=== PATIENT | female | born 1985 | race African-American/Black ===

== ENCOUNTER 2020-12-31 11:58 | Inpatient (IN) | payer BC, SELFPAY ==
[2020-12-31] VITALS (14 sets, daily range): BP systolic 111–137; BP diastolic 61–77; PULSE 72–121; RESP 11–32; TEMP 36.4–37.3; O2SAT 86–97; BMI 45.1
--- NOTE | ~2020-12-31 | CT_ITS ---
EXAMINATION: CTA chest PE protocol EXAM DATE: 12/31/2020 14:15 INDICATION: Shortness of breath, COVID positive. Nausea vomiting diarrhea. TECHNIQUE: Spiral CTA of the chest (pulmonary arteries) was performed with 100 cc Omnipaque 350 intr avenous contrast injection. Images were acquired during the pulmonary arterial phase. Coronal maxi mum intensity projection 3D-reconstructions were created by the technologist on dedicated workstation . Axial, coronal and sagittal reformatted images were reviewed. The dose-length product (DLP) for t his examination was 674.36 mGy-cm. The exposure was tailored according to patient size (auto mA exp osure control), and iterative reconstruction (ASIR) was used as additional dose reduction technique. Correlation is made to chest x-ray from 12/31/2020. FINDINGS: Pulmonary arteries are well opacified and without intraluminal filling defects. No thora cic aortic dissection. Moderate amount of groundglass acute airspace disease involving all lobes, with some small regions of confluence developing in the lower lobes. Appearance is consistent with COVID pneumonia. Correlation with prior chest x-ray, there may be slight interval increase in extent of lung involvement. The dev eloping confluent regions are more consistent with subacute age. There are no pleural or pericardial effusions. Tracheobronchial tree is patent. There is no media stinal, hilar or axillary lymphadenopathy. There is no pneumothorax. Heart normal in size. No e vidence of coronary arterial calcification. Upper abdomen is unremarkable. The bones are unremarka ble. IMPRESSION: 1. No pulmonary emboli. 2. Acute to subacute COVID pneumonia with moderate involvement of all lobes. Reviewed, dictated and finalized at location B.
--- NOTE | ~2020-12-31 | XR_ITS ---
EXAMINATION: XR chest 1V portable DATE: 12/31/2020 12:30 INDICATION: COVID. Shortness of breath. TECHNIQUE: frontal view of the chest was obtained. COMPARISON: None FINDINGS: Mild airspace opacities in the bilateral mid and lower lung zones. No pleural effusion or pneumothora x. The cardiomediastinal silhouette is normal. Visualized bones and soft tissues are unremarkable. IMPRESSION: 1. Mild patchy bilateral airspace opacities consistent with pneumonia versus less likely pulmonary ed deb. Reviewed, dictated and finalized at location A. IMPRESSION: 1. Mild patchy bilateral airspace opacities consistent with pneumonia versus le ss likely pulmonary edema.
--- NOTE | 2020-12-31 12:00 | ECG_ITS ---
Measurements Intervals Graff Rate: 118 P: 30 IA: 131 QRS: 27 QRSD: 86 T: -2 QT: 340 QTc: 478 Interpretive Statements SINUS TACHYCARDIA NONSPECIFIC T-WAVE ABNORMALITY- ANT/INF LEADS ABNORMAL ECG Electronically Signed On 12-31-2020 12:23:53 CDT by Chuy Jacobs D.O.
--- NOTE | 2020-12-31 12:06 | PC.NURSE ---
Pt placed on 3L via NC for o2 at 85% on ra after getting out of wheelchair and into stretcher.
[2020-12-31 12:20] LABS: Basophils Percent Auto 0.1 % (0.2-1.2); Hematocrit 41.9 % (37.0-47.0); Hemoglobin 13.5 g/dL (12.0-15.0); Immature Granulocyte Absolute 0.02 K/mm3 (0.00-0.031); Immature Granulocyte Percent A 0.3 % (0-0.5); Lymphocytes Percent Auto 11.8 % (18.3-44.2); Mean Corpuscular HGB Conc 32.2 g/dl (32-36); Mean Corpuscular Hemoglobin 24.5 pg (26-34); Mean Platelet Volume 10.1 fl (7.4-10.4); Monocytes Absolute Auto 0.3 K/mm3 (0.1-0.6); Neutrophils Absolute Auto 5.6 K/mm3 (1.3-6.7); Neutrophils Percent Auto 82.8 % (45.5-73.1); Platelet Count Result 211 k/mm3 (150-375); Red Blood Count 5.51 M/mm3 (4.2-5.4); Red Cell Distribution Width 15.1 % (11.5-14.5); White Blood Count 6.8 K/mm3 (4.5-10.0)
--- NOTE | 2020-12-31 12:29 | ED.GENADULT ---
HPI - General Adult General Chief complaint: Shortness of Breath/Dyspnea Stated complaint: COVID Time Seen by Provider: 12/31/20 12:20 Source: patient History of Present Illness HPI narrative: Patient is a 35 y/o female complaining of SOB since 4-5 days ago. She states that her SOB is mild at rest, but worse with supine position and exertion. She also has fever up to 103 and cough. She tested positive for COVID Arabella of last week (9 days ago) at [facility]. She has some pleuritic chest pain/rib pain due to cough. She did not get COVID vaccine. Related Data Home Medications Medication Instructions Recorded Confirmed No Home Medications 12/31/20 12/31/20 Allergies Allergy/AdvReac Type Severity Reaction Status Date / Time No Known Allergies Allergy Verified 12/31/20 12:04 Review of Systems Constitutional: Constitutional: Reports chills, Reports fever(s), Denies headache(s) and Denies weakness Eyes: Eyes: Denies blurry vision ENT: Denies headache(s) and Denies neck pain Cardiovascular: Cardiovascular: Reports chest pain and Reports dyspnea Respiratory: Respiratory: Reports cough and Reports dyspnea Gastrointestinal: Gastrointestinal: Denies abdominal pain, Reports diarrhea, Reports nausea and Reports vomiting Genitourinary: Genitourinary: Denies hematuria and Denies dysuria Musculoskeletal: Musculoskeletal: Denies back pain and Denies neck pain Neurologic: Denies headache(s) and Denies weakness [facility] Social History Social History Gender identity (if verbalized by the patient): Female Exam Const: General: no acute distress and well developed Orientation/consciousness: oriented to person, oriented to place, oriented to time and patient oriented x3 HENMT: Head: normocephalic Ears: external ears normal General nose exam: Normal external nose present Eyes: General: appearance normal, both eyes and all related structures Conjunctivae: conjunctivae normal Neck: Neck: normal visual inspection and full ROM Chest: Chest palpation & inspection: normal inspection of the chest and no tenderness Resp: Effort & Inspection: normal respiratory effort Auscultation: clear to auscultation bilaterally Cardio: Rate: tachycardic Rhythm: regular rhythm GI: GI Palp: No abdominal tenderness and Yes Soft to palpation Skin: General skin exam: normal color and turgor normal Neuro: General: oriented to person, oriented to place, oriented to time and patient oriented x3 Cognition (Neuro): normal cognition Extrem: General: normal to inspection, full ROM and no pedal edema Psych: Appearance: grossly normal Mental Status: mental status grossly normal Affect: normal affect Course Consultations Consultation #1: Discussed with Dr. Alicea, who agrees to admit. Date: 12/31/20 Time: 12:56 Vital Signs Vital signs: Vital Signs Temperature 37.3 C 12/31/20 12:05 Pulse Rate 118 H 12/31/20 12:05 Respiratory Rate 15 12/31/20 12:05 Blood Pressure 130/71 12/31/20 12:05 Pulse Oximetry 88 L 12/31/20 12:05 Temperature 37.3 C 12/31/20 12:05 Pulse Rate 108 H 12/31/20 14:30 Respiratory Rate 21 H 12/31/20 14:30 Blood Pressure 128/75 12/31/20 14:30 Pulse Oximetry 97 12/31/20 14:30 Medical Decision Making Vital Signs Vital Signs: Vital Signs Temperature 37.3 C 12/31/20 12:05 Pulse Rate 118 H 12/31/20 12:05 Respiratory Rate 15 12/31/20 12:05 Blood Pressure 130/71 12/31/20 12:05 Pulse Oximetry 88 L 12/31/20 12:05 Temperature 37.3 C 12/31/20 12:05 Pulse Rate 108 H 12/31/20 14:30 Respiratory Rate 21 H 12/31/20 14:30 Blood Pressure 128/75 12/31/20 14:30 Pulse Oximetry 97 12/31/20 14:30 Lab Data Result diagrams: 12/31/20 12:12 12/31/20 12:12 Labs: Lab Results 12/31/20 12/31/20 12/31/20 Range/Units 12:12 12:12 12:12 WBC 6.8 (4.5-10.0) K/mm3 RBC 5.51 H (4.2-5
[2020-12-31 12:30] LABS: Anion Gap 13 mmol/L (8-16); Blood Urea Nitrogen 7 mg/dL (7-17); Calcium 8.5 mg/dL (8.4-10.2); Carbon Dioxide 22 mmol/L (22-30); Chloride 97 mmol/L (98-107); Estimated CRCL calculation 84 ml/min; Estimated Glomerular Filt Rate > 60; Glucose 120 mg/dL (65-110); Potassium 3.8 mmol/L (3.4-5.0); Sodium 132 mmol/L (137-145)
[2020-12-31 12:34] LABS: INR 0.9
[2020-12-31 12:35] LABS: Partial Thromboplastin Time 30.6 SECONDS (22.3-36.8)
[2020-12-31 12:37] LABS: D Dimer 1.38 ug/mL (<0.48)
[2020-12-31 12:41] LABS: Alanine Aminotransferase 70 U/L (4-35); Albumin Level 3.8 g/dL (3.5-5.1); Alkaline Phosphatase 82 U/L (38-126); Aspartate Amino Transferase 158 U/L (14-36); Bilirubin,Total 0.5 mg/dL (0.2-1.3)
[2020-12-31 12:54] LABS: CRP 14.8 mg/dL (<1.0)
--- NOTE | 2020-12-31 13:07 | PC.NURSE ---
[facility] lab, jasmin, added on bnp
[2020-12-31 13:28] LABS: NT Pro B Type Natriuretic Pept 32 pg/mL (5-100)
[2020-12-31] MEDS: DEXAMETHASONE SOD PHOS INJ 4 MG/ML VIAL 6 MG IV PUSH (13:53)
--- NOTE | 2020-12-31 14:05 | PC.NURSE ---
Pt to ct at this time.
--- NOTE | 2020-12-31 14:35 | PM.IMHP ---
H&P: HPI History of Present Illness Date/Time: 12/31/20 14:35 Chief Complaint: shortness of breath Narrative: Marisa Farah is a 35 year old lady with no past medical history has been admitted after presenting to the ED with complaints of worsening shortness of breath for the past several days. She also reports associated dyspnea on exertion and chest pain. She tested positive for COVID 19 on December 15. She tells me her boyfriend is also positive. She tells me she has had fever, cough and diarrhea with no improvement since the diagnosis. She did not receive the COVID 19 vaccine. She does endorse SOB during interview and exam. She denied any MORENO, dizziness, N/V or abdominal pain. ED evaluation included and revealed: She was afebrile on admission. O2 sats 86% on room air.Na 132; Cl 97; BG 120; AST/ALT 158/70; D-dimer 1.38; Ferritin 341; CRP 14.8. CXR showed mild patchy bilateral airspace opacities consistent with pneumonia versus less likely pulmonary edema. CTA was negative for PE. ECG showed ST. O2 sats improved on 2L of O2 to low 90s. Remdesivir and Dexamethasone were initiated in the ED. She has been admitted for further evaluation and treatment. Review of Systems Review of Systems: All systems reviewed & are unremarkable except as noted in HPI and below PMFSH Family History Family History Grandparent Diabetes mellitus Congestive heart failure Other Diabetes mellitus Father Cancer Mother Cancer Social History Social History Smoking status: Never smoker Alcohol intake: current Drinks per week: 1 Substance use: never Substance use type: does not use Gender identity (if verbalized by the patient): Female Sexual Orientation (if Verbalized by the Patient): Straight or Heterosexual Spiritual care concerns: No Meds Home Medications and Allergies Home Medications Medication Instructions Recorded Confirmed Type No Home Medications 12/31/20 12/31/20 History Allergies Allergy/AdvReac Type Severity Reaction Status Date / Time No Known Allergies Allergy Verified 12/31/20 15:29 Vital Signs Vital Signs - 24 hr 12/31/20 12:05 12/31/20 12:25 12/31/20 12:37 Temperature 37.3 C Pulse Rate 118 H 121 H 117 H Respiratory Rate 15 19 25 H Blood Pressure 130/71 Pulse Oximetry 88 L 93 94 12/31/20 12:49 12/31/20 13:02 12/31/20 13:15 Temperature Pulse Rate 115 H 115 H 115 H Respiratory Rate 25 H 19 32 H Blood Pressure Pulse Oximetry 91 93 93 Exam Const: General: no acute distress, alert and awake Orientation/consciousness: patient oriented x3 HENMT: Head: normocephalic and atraumatic Ears: hearing grossly normal bilaterally and external ears normal Face and sinus: face symmetric Mouth: Yes Normal oral and palatal mucosa present Eyes: Pupils: Equal, round and reactive pupils present EOM: EOMs intact bilaterally Neck: Neck: full ROM, trachea midline and no JVD Thyroid: thyroid normal Chest: Chest palpation & inspection: normal inspection of the chest Resp: Effort & Inspection: normal respiratory effort, able to speak in complete sentences and Actively coughing Cardio: Jugular venous distension: no JVD Rate: regular rate Rhythm: regular rhythm Heart sounds: S1 normal heart sound present and S2 normal heart sound present GI: Inspection: normal to inspection GI Palp: Yes Soft to palpation Percussion: Yes normal to percussion Auscultation: normal bowel sounds : General: Yes no CVA tenderness Back/Spine/Pelvis: Back: no CVA tenderness Skin: General skin exam: normal color Rashes: no rashes Neuro: General: patient oriented x3 and CN's II-XI intact bilaterally Cranial nerves: Yes Equal, round and reactive pupils present Speech: normal speech Psych: Appearance: grossly normal Affect: normal affect Judgement: Good judgement present (Psych)
[2020-12-31] MEDS: REMDESIVIR 200 MG/NS 250 ML 200 MG/250 ML BAG 250 MG IVPB (15:08)
--- NOTE | 2020-12-31 15:19 | ADMGEN ---
This patient, Marisa Farah, was admitted to [facility] Surg Room 303-01. Patient/family oriented to hospital policies and general routines including ID bracelet, bed and alarms, visiting hours, pain management, procedures, bathroom and other care routines, personal items, smoking policy, room service/diet, and visiting hours. Information on how to activate the Rapid Response Team has been discussed. Patient/Family are encouraged to report perceived risks to care and to ask questions if they do not understand what they are told or what they should do.
[2020-12-31 15:26] LABS: Estimated CRCL calculation 77 ml/min; Estimated Glomerular Filt Rate > 60
[2021-01-01] VITALS (8 sets, daily range): BP systolic 117–155; BP diastolic 74–85; PULSE 73–95; RESP 18–28; TEMP 36.4–37.1; O2SAT 90–100
[2021-01-01] MEDS: guaiFENesin/DEXTROMETHORPHAN 10 ML UDC 5 ML PO (01:33)
[2021-01-01] MEDS: ACETAMINOPHEN 500 MG TABLET 1000 MG PO (01:34)
[2021-01-01 06:40] LABS: Prothrombin Time 12.6 Seconds (11.1-14.7)
[2021-01-01 06:54] LABS: Alanine Aminotransferase 84 U/L (4-35); Estimated CRCL calculation 80 ml/min; Estimated Glomerular Filt Rate > 60
[2021-01-01] MEDS: DEXAMETHASONE SOD PHOS INJ 4 MG/ML VIAL 6 MG IV PUSH (09:47)
[2021-01-01] MEDS: ENOXAPARIN 40 MG/0.4 ML SYRINGE SUB-Q (09:47)
--- NOTE | 2021-01-01 16:37 | PM.IMPN ---
Progress Note: A&P Assessment and Plan (1) Pneumonia due to COVID-19 virus: Code(s): U07.1 - COVID-19; J12.82 - Pneumonia due to coronavirus disease 2019 Status: Acute Assessment and Plan: Patient presents with nonproductive cough and post-tussive vomiting; CTA chest demonstrates evidence consistent with COVID pneumonia with moderate involvement in all lobes, no evidence of PE. COVID positive 12/22/20; symptoms began that day. She has not received COVID vaccine. Continue dexamethasone (day 2); remdesivir (day 2). Continue supplemental O2 and wean as tolerated to keep O2 saturations > 90%. Continue supportive care with Tylenol for fevers, albuterol MDI, Robitussin, incentive spirometer. (2) Acute respiratory failure with hypoxia: Code(s): J96.01 - Acute respiratory failure with hypoxia Status: Acute Assessment and Plan: Tolerating 4 L O2 nasal cannula today. Wean supplemental oxygen as tolerated to keep O2 saturations > 90%. Monitor with continuous pulse ox monitoring. (3) Acute hyponatremia: Code(s): E87.1 - Hypo-osmolality and hyponatremia Status: Acute Assessment and Plan: Mild hyponatremia may have been related to mild dehydration. She received IV fluids which have been discontinued. Recheck BMP in AM. Subjective Date/time seen: 01/01/21 16:15 Interval history: Ms. Farah is a pleasant, otherwise healthy 35yo female who is seen in follow-up for acute respiratory failure secondary to COVID-19 pneumonia. She reports feeling about the same as yesterday. She feels her shortness of breath and cough are minimally improved compared to yesterday. Still with some diarrhea this morning x1, nonbloody. Denies nausea, vomiting. Tolerating meals today. Review of Systems Review of Systems: All systems reviewed & are unremarkable except as noted in HPI and below Exam Narrative: General: Female resting comfortably sitting up in bed in no acute respiratory distress. HEENT: Normocephalic, EOMI, oral mucosa moist. Cardiovascular: Rate and rhythm are regular. Respiratory: Diminished breath sounds GE with poor air movement. Respirations even and non-labored. Tolerating 4L NC at 94% during my exam. Abdomen: Soft, non-tender, non-distended, bowel sounds present. Extremities: Peripheral pulses intact. No edema or pain to palpation. Neuro: Awake and alert; answering questions appropriately. No focal neurological deficits. Speech is clear. Objective Data Vital Signs Vital Signs: Last Vital Signs Temp 98.2 F 01/01/21 16:00 Pulse 87 01/01/21 16:00 Resp 20 01/01/21 16:00 BP 140/83 01/01/21 16:00 Pulse Ox 94 01/01/21 16:00 Intake/Output Intake/Output: Intake & Output 12/29/20 12/30/20 12/31/20 01/01/21 23:59 23:59 23:59 23:59 Intake Total 1050 450 Output Total 400 Balance 1050 50 Meds/Results Medications: Active Medications Generic Name Dose Route Start Last Admin Trade Name Freq PRN Reason Stop Dose Admin Acetaminophen 1,000 mg 01/01/21 00:12 01/01/21 01:34 Acetaminophen 500 Mg Tablet PO 1,000 mg Q6H PRN Administration Mild Pain (1-3) or Fever Dexamethasone Sodium Phosphate 6 mg 01/01/21 09:00 01/01/21 09:47 Dexamethasone Sod Phos Inj 4 Mg/Ml Vial IV PUSH 01/09/21 09:01 6 mg DAILY JASIEL Administration Enoxaparin Sodium 40 mg 01/01/21 09:00 01/01/21 09:47 Enoxaparin 40 Mg/0.4 Ml Syringe SUB-Q 40 mg DAILY JASIEL Administration Guaifenesin/Dextromethorphan 5 ml 01/01/21 00:13 01/01/21 01:33 Guaifenesin/Dextromethorphan 10 Ml Udc PO 5 ml Q4H PRN Administration Cough Remdesivir 100 mg in 250 mls @ 250 mls/hr 01/01/21 22:00 IVPB 01/04/21 22:59 Q24H COUNT INCLUDES THE [facility] Radiology Results: ITS Impressions Chest X-Ray 12/31/20 12:33 IMPRESSION: 1. Mild
[2021-01-01] MEDS: REMDESIVIR 100 MG/NS 250 ML 100 MG/250 ML BAG 250 MG IVPB (22:02)
[2021-01-02] VITALS (9 sets, daily range): BP systolic 115–132; BP diastolic 72–90; PULSE 71–85; RESP 18–20; TEMP 36.2–36.8; O2SAT 93–97
[2021-01-02 05:36] LABS: Basophils Percent Auto 0.1 % (0.2-1.2); Hematocrit 37.6 % (37.0-47.0); Immature Granulocyte Absolute 0.06 K/mm3 (0.00-0.031); Immature Granulocyte Percent A 0.9 % (0-0.5); Lymphocytes Absolute Auto 1.03 K/mm3 (0.9-3.2); Lymphocytes Percent Auto 14.8 % (18.3-44.2); Mean Corpuscular HGB Conc 31.9 g/dl (32-36); Mean Corpuscular Hemoglobin 24.7 pg (26-34); Mean Corpuscular Volume 77.4 fl (80-100); Mean Platelet Volume 10.4 fl (7.4-10.4); Monocytes Absolute Auto 0.6 K/mm3 (0.1-0.6); Monocytes Percent Auto 8.5 % (2.6-8.5); Neutrophils Absolute Auto 5.3 K/mm3 (1.3-6.7); Neutrophils Percent Auto 75.7 % (45.5-73.1); Platelet Count Result 292 k/mm3 (150-375); Red Blood Count 4.86 M/mm3 (4.2-5.4); Red Cell Distribution Width 15.2 % (11.5-14.5)
[2021-01-02 05:48] LABS: INR 1.2; Prothrombin Time 15.1 Seconds (11.1-14.7)
[2021-01-02 05:59] LABS: Alanine Aminotransferase 97 U/L (4-35); Albumin Level 3.1 g/dL (3.5-5.1); Alkaline Phosphatase 67 U/L (38-126); Anion Gap 8 mmol/L (8-16); Aspartate Amino Transferase 114 U/L (14-36); Bilirubin,Total 0.3 mg/dL (0.2-1.3); Blood Urea Nitrogen 15 mg/dL (7-17); CRP 4.2 mg/dL (<1.0); Calcium 8.6 mg/dL (8.4-10.2); Carbon Dioxide 24 mmol/L (22-30); Chloride 102 mmol/L (98-107); Creatine Kinase 1090 U/L (30-135); Estimated CRCL calculation 99 ml/min; Estimated Glomerular Filt Rate > 60; Glucose 119 mg/dL (65-110); Magnesium 2.1 mg/dL (1.6-2.3); Potassium 4.1 mmol/L (3.4-5.0); Sodium 134 mmol/L (137-145)
--- NOTE | 2021-01-02 07:35 | PM.IMPN ---
Progress Note: A&P Assessment and Plan (1) Pneumonia due to COVID-19 virus: Code(s): U07.1 - COVID-19; J12.82 - Pneumonia due to coronavirus disease 2019 Status: Acute Assessment and Plan: Patient presents with nonproductive cough and post-tussive vomiting; CTA chest demonstrates evidence consistent with COVID pneumonia with moderate involvement in all lobes, no evidence of PE. COVID positive 12/22/20; symptoms began that day. She has not received COVID vaccine. Continue dexamethasone (day 3); remdesivir (day 3). Continue supplemental O2 and wean as tolerated to keep O2 saturations > 90%. Continue supportive care with Tylenol for fevers, albuterol MDI, Robitussin, incentive spirometer. (2) Acute respiratory failure with hypoxia: Code(s): J96.01 - Acute respiratory failure with hypoxia Status: Acute Assessment and Plan: Tolerating 3 L O2 nasal cannula today. Wean supplemental oxygen as tolerated to keep O2 saturations > 90%. Monitor with continuous pulse ox monitoring. (3) Acute hyponatremia: Code(s): E87.1 - Hypo-osmolality and hyponatremia Status: Acute Assessment and Plan: Mild hyponatremia may have been related to mild dehydration. She received IV fluids which have been discontinued. Improved to 134. Subjective Date/time seen: 01/02/21 1500 Interval history: Ms. Farah is a pleasant, otherwise healthy 35yo female who is seen in follow-up for acute respiratory failure secondary to COVID-19 pneumonia. She overall feels pretty well but has significant dry cough that leaves her short of breath. She has a sore near her bottom right molar in her mouth that has been sore for several days now. Appetite is better today and she is eating well. Says her sense of taste and smell have returned. No nausea or vomiting. Review of Systems Review of Systems: All systems reviewed & are unremarkable except as noted in HPI and below Exam Narrative: General: Female resting comfortably sitting up in bed in no acute respiratory distress. HEENT: Normocephalic, EOMI, oral mucosa moist. Cardiovascular: Rate and rhythm are regular. Respiratory: Diminished breath sounds GE with poor air movement. Respirations even and non-labored. Tolerating 3L NC at 94% during my exam. Abdomen: Soft, non-tender, non-distended, bowel sounds present. Extremities: Peripheral pulses intact. No edema or pain to palpation. Neuro: Awake and alert; answering questions appropriately. No focal neurological deficits. Speech is clear. Objective Data Vital Signs Vital Signs: Vital Signs - 24 hr 01/02/21 08:00 01/02/21 09:15 01/02/21 09:20 Temperature 97.9 F Pulse Rate 71 Respiratory Rate 18 Blood Pressure 132/90 Pulse Oximetry 97 96 93 01/02/21 12:00 01/02/21 16:00 01/02/21 20:00 Temperature 98.3 F 98.0 F 97.5 F L Pulse Rate 72 80 82 Respiratory Rate 18 18 18 Blood Pressure 115/74 127/74 121/77 Pulse Oximetry 95 96 94 01/02/21 23:57 01/03/21 04:00 Temperature 97.5 F L 97.3 F L Pulse Rate 76 76 Respiratory Rate 18 20 Blood Pressure 119/75 124/76 Pulse Oximetry 95 97 Intake/Output Intake/Output: Intake & Output 12/31/20 01/01/21 01/02/21 01/03/21 23:59 23:59 23:59 23:59 Intake Total 1050 1710 3130 800 Output Total 9218 583 8922 Balance 4188 178 8301 -300 Meds/Results Medications: Active Medications Generic Name Dose Route Start Last Admin Trade Name Freq PRN Reason Stop Dose Admin Acetaminophen 1,000 mg 01/01/21 00:12 01/02/21 21:43 Acetaminophen 500 Mg Tablet PO 1,000 mg Q6H PRN Administration Mild Pain (1-3) or Fever Albuterol 2 puff 01/01/21 17:44 Albuterol Sulfate (*Sp) Aerosol 1 Puff INHALATION QIDRT PRN Shortness Of Breath Dexamethasone Sodium Phosphate 6 mg 01/01/21 09:00 01/02/21 09:2
[2021-01-02] MEDS: ACETAMINOPHEN 500 MG TABLET 1000 MG PO ×3 (09:26→21:43)
[2021-01-02] MEDS: DEXAMETHASONE SOD PHOS INJ 4 MG/ML VIAL 6 MG IV PUSH (09:26)
[2021-01-02] MEDS: guaiFENesin/DEXTROMETHORPHAN 10 ML UDC 5 ML PO ×4 (09:26→20:07)
[2021-01-02] MEDS: ENOXAPARIN 40 MG/0.4 ML SYRINGE SUB-Q (09:26)
[2021-01-02] MEDS: REMDESIVIR 100 MG/NS 250 ML 100 MG/250 ML BAG 250 MG IVPB (21:44)
[2021-01-03] VITALS (8 sets, daily range): BP systolic 113–124; BP diastolic 72–84; PULSE 70–88; RESP 16–20; TEMP 36.2–36.6; O2SAT 90–98
[2021-01-03] MEDS: guaiFENesin/DEXTROMETHORPHAN 10 ML UDC 5 ML PO ×5 (06:05→22:10)
[2021-01-03 06:20] LABS: Prothrombin Time 13.4 Seconds (11.1-14.7)
[2021-01-03 06:25] LABS: Alanine Aminotransferase 88 U/L (4-35); Estimated CRCL calculation 99 ml/min; Estimated Glomerular Filt Rate > 60
[2021-01-03] MEDS: ACETAMINOPHEN 500 MG TABLET 1000 MG PO ×2 (08:46→23:44)
[2021-01-03] MEDS: DEXAMETHASONE SOD PHOS INJ 4 MG/ML VIAL 6 MG IV PUSH (08:47)
[2021-01-03] MEDS: ENOXAPARIN 40 MG/0.4 ML SYRINGE SUB-Q (08:47)
--- NOTE | 2021-01-03 16:20 | PM.IMPN ---
Progress Note: A&P Assessment and Plan (1) Pneumonia due to COVID-19 virus: Code(s): U07.1 - COVID-19; J12.82 - Pneumonia due to coronavirus disease 2019 Status: Acute Assessment and Plan: Patient presents with nonproductive cough and post-tussive vomiting; CTA chest demonstrates evidence consistent with COVID pneumonia with moderate involvement in all lobes, no evidence of PE. COVID positive 12/22/20; symptoms began that day. She has not received COVID vaccine. Continue dexamethasone (day 4); remdesivir (day 4). Continue supplemental O2 and wean as tolerated to keep O2 saturations > 90%. Continue supportive care with Tylenol for fevers, albuterol MDI, Robitussin, incentive spirometer. (2) Acute respiratory failure with hypoxia: Code(s): J96.01 - Acute respiratory failure with hypoxia Status: Acute Assessment and Plan: Tolerating room air late this afternoon. Monitor overnight with continuous pulse ox monitoring. We discussed possible discharge tomorrow. (3) Acute hyponatremia: Code(s): E87.1 - Hypo-osmolality and hyponatremia Status: Acute Assessment and Plan: Mild hyponatremia may have been related to mild dehydration. She received IV fluids which have been discontinued. Improved to 134. Subjective Date/time seen: 01/03/21 16:15 Interval history: Ms. Farah is a pleasant, otherwise healthy 35yo female who is seen in follow-up for acute respiratory failure secondary to COVID-19 pneumonia. She overall feels pretty well but has significant dry cough that leaves her short of breath. Sore in her mouth has resolved. Appetite is better. She feels weak and fatigued. No chest pain, just left lower rib discomfort when she coughs. Review of Systems Review of Systems: All systems reviewed & are unremarkable except as noted in HPI and below Exam Narrative: General: Female resting comfortably sitting up in bed in no acute respiratory distress. HEENT: Normocephalic, EOMI, oral mucosa moist. Cardiovascular: Rate and rhythm are regular. Respiratory: Diminished breath sounds GE with poor air movement. Respirations even and non-labored. Tolerating room air at 94% during my exam. Abdomen: Soft, non-tender, non-distended, bowel sounds present. Extremities: Peripheral pulses intact. No edema or pain to palpation. Neuro: Awake and alert; answering questions appropriately. No focal neurological deficits. Speech is clear. Objective Data Vital Signs Vital Signs: Last Vital Signs Temp 97.1 F L 01/03/21 12:00 Pulse 70 01/03/21 12:00 Resp 18 01/03/21 12:00 BP 116/72 01/03/21 12:00 Pulse Ox 98 01/03/21 12:00 Intake/Output Intake/Output: Intake & Output 12/31/20 01/01/21 01/02/21 01/03/21 23:59 23:59 23:59 23:59 Intake Total 1050 1710 3130 1280 Output Total 6229 462 5067 Balance 5991 119 9904 180 Meds/Results Medications: Active Medications Generic Name Dose Route Start Last Admin Trade Name Freq PRN Reason Stop Dose Admin Acetaminophen 1,000 mg 01/01/21 00:12 01/03/21 08:46 Acetaminophen 500 Mg Tablet PO 1,000 mg Q6H PRN Administration Mild Pain (1-3) or Fever Albuterol 2 puff 01/01/21 17:44 Albuterol Sulfate (*Sp) Aerosol 1 Puff INHALATION QIDRT PRN Shortness Of Breath Dexamethasone Sodium Phosphate 6 mg 01/01/21 09:00 01/03/21 08:47 Dexamethasone Sod Phos Inj 4 Mg/Ml Vial IV PUSH 01/09/21 09:01 6 mg DAILY JASIEL Administration Enoxaparin Sodium 40 mg 01/01/21 09:00 01/03/21 08:47 Enoxaparin 40 Mg/0.4 Ml Syringe SUB-Q 40 mg DAILY JASIEL Administration Guaifenesin/Dextromethorphan 5 ml 01/03/21 05:00 01/03/21 13:09 Guaifenesin/Dextromethorphan 10 Ml Udc PO 5 ml Q4HR JASIEL Administration Remdesivir 100 mg in 250 mls @ 250 mls/hr 01/01/21 22:00 01/02/21
[2021-01-03] MEDS: BENZONATATE 100 MG CAPSULE 200 MG PO (18:48)
[2021-01-03] MEDS: REMDESIVIR 100 MG/NS 250 ML 100 MG/250 ML BAG 250 MG IVPB (22:05)
[2021-01-04] VITALS (14 sets, daily range): BP systolic 118–139; BP diastolic 78–96; PULSE 72–106; RESP 18–21; TEMP 36.3–36.8; O2SAT 86–100
[2021-01-04] MEDS: guaiFENesin/DEXTROMETHORPHAN 10 ML UDC 5 ML PO ×6 (01:00→22:20)
[2021-01-04 06:57] LABS: Hematocrit 38.1 % (37.0-47.0); Hemoglobin 11.8 g/dL (12.0-15.0)
[2021-01-04 07:09] LABS: Alanine Aminotransferase 75 U/L (4-35); Albumin Level 2.9 g/dL (3.5-5.1); Alkaline Phosphatase 55 U/L (38-126); Anion Gap 8 mmol/L (8-16); Aspartate Amino Transferase 57 U/L (14-36); Bilirubin,Total 0.4 mg/dL (0.2-1.3); Blood Urea Nitrogen 12 mg/dL (7-17); Calcium 8.5 mg/dL (8.4-10.2); Carbon Dioxide 26 mmol/L (22-30); Chloride 102 mmol/L (98-107); Estimated CRCL calculation 99 ml/min; Estimated Glomerular Filt Rate > 60; Glucose 83 mg/dL (65-110); Magnesium 1.9 mg/dL (1.6-2.3); Potassium 3.8 mmol/L (3.4-5.0); Sodium 136 mmol/L (137-145)
[2021-01-04 07:14] LABS: INR 1.1; Prothrombin Time 13.6 Seconds (11.1-14.7)
[2021-01-04] MEDS: DEXAMETHASONE SOD PHOS INJ 4 MG/ML VIAL 6 MG IV PUSH (08:36)
[2021-01-04] MEDS: BENZONATATE 100 MG CAPSULE 200 MG PO ×3 (08:37→17:47)
[2021-01-04] MEDS: ENOXAPARIN 40 MG/0.4 ML SYRINGE SUB-Q (08:37)
[2021-01-04] MEDS: ACETAMINOPHEN 500 MG TABLET 1000 MG PO ×2 (08:54→22:22)
--- NOTE | 2021-01-04 13:54 | HOMEO2EVAL ---
Evaluation was performed at [facility] Home Oxygen Evaluation RC: Home Oxygen (O2) Evaluation Start: 01/04/21 09:53 Freq: ONCE Status: Active Protocol: RPE Activity Type Activity Date Activity User E-Sign Co-Sign Detail Recorded Client Recorded Date Recorded By Document 01/04/21 13:00 DJO [email or web address] 01/04/21 13:49 DJO Document 01/04/21 13:05 [email or web address] [email or web address] 01/04/21 13:49 DJO Document 01/04/21 13:10 [email or web address] [email or web address] 01/04/21 13:49 DJO Document 01/04/21 13:15 [email or web address] [email or web address] 01/04/21 13:49 DJO Document 01/04/21 13:30 [email or web address] [email or web address] 01/04/21 13:49 DJO 01/04/21 01/04/21 01/04/21 13:00 13:05 13:10 Home O2 Evaluation Test Phase Resting Exercise Exercise Oxygen Delivery Room Air Room Air Nasal Cannula Oxygen Flow Rate (L/min) 1 Pulse Oximetry (90-100 %) 91 86 L 88 L Pulse Rate (60-100 beats/min) 88 97 102 H Treatment Charges O2 Evaluation - Inpatient 01/04/21 01/04/21 13:15 13:30 Home O2 Evaluation Test Phase Exercise Resting Oxygen Delivery Nasal Cannula Room Air Oxygen Flow Rate (L/min) 2 Pulse Oximetry (90-100 %) 90 90 Pulse Rate (60-100 beats/min) 106 H 91 Treatment Charges
--- NOTE | 2021-01-04 14:56 | PCRCNOTE ---
HOME O2 NOT SET UP PER [employer] MANAGER PAULO DUNCAN, PT TO STAY 1 MORE DAY FOR LAST DOSE OF REMDESIVIR.
--- NOTE | 2021-01-04 16:47 | PM.IMPN ---
Progress Note: A&P Assessment and Plan (1) Pneumonia due to COVID-19 virus: Code(s): U07.1 - COVID-19; J12.82 - Pneumonia due to coronavirus disease 2019 Status: Acute Assessment and Plan: Patient presents with nonproductive cough and post-tussive vomiting; CTA chest demonstrates evidence consistent with COVID pneumonia with moderate involvement in all lobes, no evidence of PE. COVID positive 12/22/20; symptoms began that day. She has not received COVID vaccine. Continue dexamethasone (day 5); remdesivir (day 5). Will renew remdesivir so she can continue another dose tomorrow. Continue supportive care with Tylenol for fevers, albuterol MDI, Robitussin, incentive spirometer. (2) Acute respiratory failure with hypoxia: Code(s): J96.01 - Acute respiratory failure with hypoxia Status: Acute Assessment and Plan: Continue supplemental O2 and wean as tolerated to keep O2 saturations > 90%. Home O2 eval performed today since we were hopeful she may discharge - showed no oxygen at rest and 2L with activity. Patient is interested in staying for further treatment with Remdesivir and dexamethasone to potentially avoid home O2 if possible. (3) Acute hyponatremia: Code(s): E87.1 - Hypo-osmolality and hyponatremia Status: Resolved Assessment and Plan: Mild hyponatremia may have been related to mild dehydration. She received IV fluids which have been discontinued. Improved to 136. (4) Elevated LFTs: Code(s): R79.89 - Other specified abnormal findings of blood chemistry Status: Acute Assessment and Plan: Suspect secondary to viral illness with COVID. Improving each day. Will continue to monitor while on Remdesivir. Subjective Date/time seen: 01/04/21 1615 Interval history: Ms. Farah is a pleasant, otherwise healthy 35yo female who is seen in follow-up for acute respiratory failure secondary to COVID-19 pneumonia. She overall feels pretty well but has significant dry cough that leaves her short of breath. Appetite is better. No chest pain, just left lower rib discomfort when she coughs. Review of Systems Review of Systems: All systems reviewed & are unremarkable except as noted in HPI and below Exam Narrative: General: Female resting comfortably sitting up in bed in no acute respiratory distress. HEENT: Normocephalic, EOMI, oral mucosa moist. Cardiovascular: Rate and rhythm are regular. Respiratory: Diminished breath sounds GE. Respirations even and non-labored. Abdomen: Soft, non-tender, non-distended, bowel sounds present. Extremities: Peripheral pulses intact. No edema or pain to palpation. Neuro: Awake and alert; answering questions appropriately. No focal neurological deficits. Speech is clear. Objective Data Vital Signs Vital Signs: Last Vital Signs Temp 97.7 F 01/04/21 16:00 Pulse 87 01/04/21 16:00 Resp 20 01/04/21 16:00 BP 118/79 01/04/21 16:00 Pulse Ox 97 01/04/21 16:22 Intake/Output Intake/Output: Intake & Output 01/01/21 01/02/21 01/03/21 01/04/21 23:59 23:59 23:59 23:59 Intake Total 1710 3130 3120 1050 Output Total 1547 336 4146 800 Balance 610 2230 920 250 Meds/Results Medications: Active Medications Generic Name Dose Route Start Last Admin Trade Name Freq PRN Reason Stop Dose Admin Acetaminophen 1,000 mg 01/01/21 00:12 01/04/21 08:54 Acetaminophen 500 Mg Tablet PO 1,000 mg Q6H PRN Administration Mild Pain (1-3) or Fever Albuterol 2 puff 01/01/21 17:44 Albuterol Sulfate (*Sp) Aerosol 1 Puff INHALATION QIDRT PRN Shortness Of Breath Benzonatate 200 mg 01/03/21 18:05 01/04/21 12:10 Benzonatate 100 Mg Capsule PO 200 mg TID JASIEL Administration Dexamethasone Sodium Phosphate 6 mg 01/01/
[2021-01-04] MEDS: REMDESIVIR 100 MG/NS 250 ML 100 MG/250 ML BAG 250 MG IVPB (22:21)
[2021-01-05] VITALS: BP 139/82; PULSE 82; RESP 20; TEMP 36.5; O2SAT 91
[2021-01-05 04:00] VITALS: BP 133/89; PULSE 79; RESP 20; TEMP 36.5; O2SAT 93
[2021-01-05] MEDS: guaiFENesin/DEXTROMETHORPHAN 10 ML UDC 5 ML PO ×3 (05:49→12:27)
[2021-01-05 06:24] LABS: Alanine Aminotransferase 71 U/L (4-35); Albumin Level 2.7 g/dL (3.5-5.1); Alkaline Phosphatase 60 U/L (38-126); Anion Gap 7 mmol/L (8-16); Aspartate Amino Transferase 56 U/L (14-36); Bilirubin,Total < 0.1 mg/dL (0.2-1.3); Blood Urea Nitrogen 11 mg/dL (7-17); Calcium 8.1 mg/dL (8.4-10.2); Carbon Dioxide 26 mmol/L (22-30); Chloride 104 mmol/L (98-107); Estimated CRCL calculation 99 ml/min; Estimated Glomerular Filt Rate > 60; Glucose 81 mg/dL (65-110); Magnesium 2.1 mg/dL (1.6-2.3); Potassium 3.8 mmol/L (3.4-5.0); Sodium 137 mmol/L (137-145)
[2021-01-05 06:28] LABS: Hemoglobin 11.2 g/dL (12.0-15.0); Mean Corpuscular Hemoglobin 24.4 pg (26-34); Mean Corpuscular Volume 76.3 fl (80-100); Mean Platelet Volume 9.8 fl (7.4-10.4); Platelet Count Result 325 k/mm3 (150-375); Red Blood Count 4.59 M/mm3 (4.2-5.4); Red Cell Distribution Width 15.2 % (11.5-14.5); White Blood Count 7.4 K/mm3 (4.5-10.0)
[2021-01-05 06:29] LABS: INR 1.1; Prothrombin Time 13.6 Seconds (11.1-14.7)
[2021-01-05 08:00] VITALS: BP 134/81; PULSE 90; RESP 16; RESP 21; TEMP 36.4; O2SAT 91; O2SAT 92
[2021-01-05] MEDS: BENZONATATE 100 MG CAPSULE 200 MG PO ×2 (08:07→12:27)
[2021-01-05] MEDS: ENOXAPARIN 40 MG/0.4 ML SYRINGE SUB-Q (08:07)
[2021-01-05] MEDS: DEXAMETHASONE SOD PHOS INJ 4 MG/ML VIAL 6 MG IV PUSH (08:07)
[2021-01-05 12:00] VITALS: BP 149/89; PULSE 89; RESP 20; TEMP 37.8; O2SAT 94
[2021-01-05 14:13] VITALS: TEMP 37.8
[2021-01-05] MEDS: ACETAMINOPHEN 500 MG TABLET 1000 MG PO (14:13)
[2021-01-05 15:13] VITALS: TEMP 37.2
--- NOTE | 2021-01-05 15:28 | PM.DS ---
DS: Admitting Diagnosis Admitting Diagnosis SOB DS: Discharge Diagnosis Discharge Diagnosis (1) Pneumonia due to COVID-19 virus: Code(s): U07.1 - COVID-19; J12.82 - Pneumonia due to coronavirus disease 2019 Status: Acute Assessment and Plan: Patient is a 35-year-old woman with known past medical history, who presented to the emergency room after being diagnosed with COVID-19 on December 22 and having worsening shortness of breath for the last few days, With associated dyspnea with exertion, fevers, cough, diarrhea. The patient did not receive her COVID vaccine. Initial vitals showed she was afebrile, O2 sats shows she was hypoxic at 88% on room air, tachycardic at 118 bpm, stable BP. Initial labs showed Na 132; Cl 97; BG 120; AST/ALT 158/70; D-dimer 1.38; Ferritin 341; CRP 14.8. CXR showed mild patchy bilateral airspace opacities consistent with pneumonia versus less likely pulmonary edema. CTA was negative for PE. O2 sats improved on 2L of O2 to low 90s. IV Remdesivir and Dexamethasone were initiated in the ED. She has been admitted for further evaluation and monitoring for COVID 19. She had 5 days of Dexamethasone and Remdezivir. She had home oxygen evaluation which showed she did not require any oxygen at rest, but acquired 2 L of oxygen with exertion. She was feeling much better today and feels comfortable being discharged home. The patient will be discharged with an oxygen bottle and her oxygen company will deliver oxygen when she returns home this evening. Will prescribe Tessalon Perles for her cough, Robitussin, dexamethasone for 5 more days, albuterol inhaler p.r.n. for shortness of breathand otherwise take [id number] medications. the patient understands and agrees the plan all questions answered. (2) Acute respiratory failure with hypoxia: Code(s): J96.01 - Acute respiratory failure with hypoxia Status: Acute Assessment and Plan: Improved with Oxygen saturation normal on room air, 2L with exertion. Will be discharged with oxygen. (3) Acute hyponatremia: Code(s): E87.1 - Hypo-osmolality and hyponatremia Status: Resolved Assessment and Plan: Mild hyponatremia may have been related to mild dehydration. She received IV fluids which have been discontinued. Improved to 137, normal. (4) Elevated LFTs: Code(s): R79.89 - Other specified abnormal findings of blood chemistry Status: Acute Assessment and Plan: Suspect secondary to viral illness with COVID. Improving each day. Will continue to monitor while on Remdesivir. DS: Summary Hospital Course Hospital Course: See above Status at Discharge Cognitive/behavioral status at discharge: Stable, improved. Time Spent with Patient Time attestation: Total time spent providing and/or coordinating discharge services: 46 Time spent: Greater than 30 minutes Exam Narrative: General: 35-year-old woman sitting up in bed talking on the phone. Appears comfortable on room air. In no acute distress. Skin: No jaundice or cyanosis. Good skin turgor. Neck: Full range of motion. Supple. Respiratory: Lungs are clear to auscultation bilaterally. No bony chest wall tenderness. Cardiovascular: The heart has a regular rate and rhythm without murmur. Lower extremities: No lower extremity edema. Distal pulses are easily palpated. No calf tenderness to palpation. Gastrointestinal: The abdomen is soft, nontender and nondistended with active bowel sounds. Psychiatric: Lucid and oriented. Memory intact. Neurologic: No focal deficits. Speech is clear. No facial drooping. DS: Data Data Completed and Pending Labs on day of discharge: Labs from last 24 hours 01/05/21 01/05/21 01/05/21 05:40 05:40 05:40 WBC 7.4 RBC 4.59 Hgb
== END 2021-01-05 17:05 | disposition home or self-care (01) | DRG 137 ==
LOC: ANHED 12:56 → ANH3MEDSUR 14:04
PROVIDERS: General Practice; Nurse Practitioner Adult Health; Physician Assistant; Admitting Provider Hospitalist; Emergency Provider Emergency Medicine; Visit Provider Physician Assistant
DX: U07.1 COVID-19 (principal); J12.82 Pneumonia due to coronavirus disease 2019; J96.01 Acute respiratory failure with hypoxia; E87.1 Hypo-osmolality and hyponatremia; E86.0 Dehydration; R79.89 Other specified abnormal findings of blood chemistry
CPT/HCPCS: 36415; 71045; 71275; 80048; 80053; 80076; 81025; 82550; 82565; 82728; 83735; 83880; 84460; 85014; 85018; 85025; 85027; 85380; 85610; 85730; 86140; 93005; 94618; 96365; 96375; 99285; A9270; G0378; G0379; J1100; J1650; J7030; Q9967

== ENCOUNTER 2021-01-29 06:23 | Emergency (ER) | payer BC, SELFPAY ==
--- NOTE | ~2021-01-29 | CT_ITS ---
EXAMINATION: CTA chest PE protocol EXAM DATE: 01/29/2021 07:49 INDICATION: Tachycardia, hemoptysis, recent COVID infection diagnosed last month. TECHNIQUE: Spiral CTA of the chest (pulmonary arteries) was performed with 100 cc Omnipaque 350 intr avenous contrast injection. Images were acquired during the pulmonary arterial phase. Coronal maxi mum intensity projection 3D-reconstructions were created by the technologist on dedicated workstation . Axial, coronal and sagittal reformatted images were reviewed. The dose-length product (DLP) for t his examination was 587.26 mGy-cm. The exposure was tailored according to patient size (auto mA exp osure control), and iterative reconstruction (ASIR) was used as additional dose reduction technique. Comparison is made to prior examination from 12/31/2020. FINDINGS: Pulmonary arteries are well opacified and without intraluminal filling defects. No thora cic aortic dissection. Moderate amount of scattered multifocal airspace disease which is beginning t o have central confluence, atelectasis. Appearance is consistent with subacute COVID pneumonia, expec moy evolution from previously seen groundglass opacities. There are no pleural or pericardial effus ions. Tracheobronchial tree is patent. Mild reactive right hilar lymphadenopathy has developed. There is no pneumothorax. Heart normal in size. No evidence of coronary arterial calcification. Upper abdomen is unremarkable. There is thoracic spondylosis without osteoblastic or osteolytic les ions identified. IMPRESSION: 1. Moderate amount scattered opacities consistent with subacute COVID pneumonia. 2. No pulmonary emboli. Reviewed, dictated and finalized at location A. IMPRESSION: 1. Moderate amount scattered opacities consistent with subacute COVID pneumoni a. 2. No pulmonary emboli.
[2021-01-29 06:29] VITALS: BP 136/93; PULSE 100; RESP 18; TEMP 36.4; O2SAT 97
--- NOTE | 2021-01-29 06:38 | ECG_ITS ---
Measurements Intervals [place] Rate: 101 P: 27 NV: 118 QRS: -3 QRSD: 99 T: -9 QT: 348 QTc: 452 Interpretive Statements SINUS TACHYCARDIA BORDERLINE T WAVE ABNORMALITY- ANTEROLAT/INF LEADS BASELINE ARTIFACT- I, II, III, AVR, AVL, AVF, V1, V3-V6 BORDERLINE ECG Electronically Signed On 01-29-2021 8:16:35 CDT by Chuy Jacobs D.O.
[2021-01-29 06:52] LABS: Basophils Percent Auto 0.4 % (0.2-1.2); Eosinophils Absolute Auto 0.1 K/mm3 (0-0.3); Eosinophils Percent Auto 1.6 % (0-4.4); Hematocrit 38.6 % (37.0-47.0); Hemoglobin 11.8 g/dL (12.0-15.0); Immature Granulocyte Absolute 0.03 K/mm3 (0.00-0.031); Immature Granulocyte Percent A 0.4 % (0-0.5); Lymphocytes Absolute Auto 2.31 K/mm3 (0.9-3.2); Lymphocytes Percent Auto 30.4 % (18.3-44.2); Mean Corpuscular HGB Conc 30.6 g/dl (32-36); Mean Corpuscular Volume 81.8 fl (80-100); Mean Platelet Volume 10.1 fl (7.4-10.4); Monocytes Absolute Auto 0.7 K/mm3 (0.1-0.6); Monocytes Percent Auto 9.3 % (2.6-8.5); Neutrophils Absolute Auto 4.4 K/mm3 (1.3-6.7); Neutrophils Percent Auto 57.9 % (45.5-73.1); Platelet Count Result 354 k/mm3 (150-375); Red Blood Count 4.72 M/mm3 (4.2-5.4); Red Cell Distribution Width 16.9 % (11.5-14.5); White Blood Count 7.6 K/mm3 (4.5-10.0)
--- NOTE | 2021-01-29 07:00 | ED.SOB ---
HPI - SOB/Dyspnea General Chief Complaint: Shortness of Breath/Dyspnea <Mikael Chen MD - Last Filed: 01/29/21 07:13> Stated Complaint: coughing up blood/ rib pain <Mikael Chen MD - Last Filed: 01/29/21 07:13> Time Seen by Provider: 01/29/21 06:50 <Mikael Chen MD - Last Filed: 01/29/21 07:13> History of Present Illness HPI Narrative: Patient presents with shortness of breath and hemoptysis. Patient reports she was diagnosed with Covid and December he was discharged to the hospital in early January reports she has been recovering well however today she noted increased shortness of breath and coughed up some blood. Reports she is had a mild cough since discharge but usually eats clear phlegm. She also reports chest pain on the left side of her chest has been present since she has had Covid source with [facility] she reports she was coughing a lot when she had Covid and feel like she injured her chest she has not noted any increase or change in her pain over the past few weeks. Blood clot she denies any estrogen therapy use she denies any recent trauma <Mikael Chen MD - Last Filed: 01/29/21 07:13> Related Data Allergies/Adverse Reactions: Allergies Allergy/AdvReac Type Severity Reaction Status Date / Time No Known Allergies Allergy Verified 12/31/20 15:29 <Mikael Chen MD - Last Filed: 01/29/21 07:13> Review of Systems Review of Systems: CONSTITUTIONAL: Denies fever, chills, or sweats. EYES: Denies visual changes, redness, or discharge. ENT: Denies rhinorrhea, congestion, sore throat, or otalgia. CARDIOVASCULAR: Denies chest pain, palpitations, or edema. RESPIRATORY: Denies cough or dyspnea. GASTROINTESTINAL: Denies abdominal pain, nausea, vomiting, or diarrhea. GENITOURINARY: Denies dysuria or hematuria. SKIN: Denies rash or itching. MUSCULOSKELETAL: Denies back pain, joint pain, or myalgia. NEUROLOGIC: Denies headache, numbness, dizziness, or weakness. PSYCHIATRIC: Denies anxiety or depression. <Mikael Chen MD - Last Filed: 01/29/21 07:13> PMFSH Family History Family History: Family History Grandparent Diabetes mellitus Congestive heart failure Other Diabetes mellitus Father Cancer Mother Cancer <Mikael Chen MD - Last Filed: 01/29/21 07:13> Social History Social History: Social History Smoking status: Never smoker Alcohol intake: current Drinks per week: 1 Substance use: never Substance use type: does not use Gender identity (if verbalized by the patient): Female Spiritual care concerns: No <Mikael Chen MD - Last Filed: 01/29/21 07:13> Exam Narrative: GENERAL: Well-appearing, well-nourished, and in no acute distress. HEAD: Normocephalic, atraumatic. EYES: PERRLA and EOMI. ENT: Nares clear, no rhinorrhea or epistaxis. Mucous membranes moist. NECK: Supple. No masses. No JVD CHEST: Clear to auscultation. No respiratory distress. No wheezes rales or rhonchi, palpation of the left lower and lateral chest wall HEART: Regular rate and rhythm. No murmur heard. Normal peripheral pulses. ABDOMEN: Soft, nontender, nondistended, normal active bowel sounds. EXTREMITIES: Normal range of motion. No edema. SKIN: Warm, dry, no rash. NEURO: No focal deficits. Alert and oriented x3. PSYCH: Normal mood and affect. <Mikael Chen MD - Last Filed: 01/29/21 07:13> Course Reevaluation(s) Reevaluation #1: Patient was signed out to oncoming provider Dr. Melvin pending labs and imaging. <Mikael Chen MD - Last Filed: 01/29/21 07:13> Patient is telling me that she been coughing since had Covid in December. With intermittent chest soreness which is worse with coughing, lately noticed intermittent red streaks in the sputum. Patient denies any fever, chills, nausea, vomiting. Currently patient on albu
[2021-01-29 07:31] LABS: INR 0.9; Prothrombin Time 12.5 Seconds (11.1-14.7)
[2021-01-29 07:32] LABS: Alanine Aminotransferase 38 U/L (4-35); Albumin Level 3.9 g/dL (3.5-5.1); Alkaline Phosphatase 95 U/L (38-126); Aspartate Amino Transferase 41 U/L (14-36); Bilirubin,Total 0.5 mg/dL (0.2-1.3); Partial Thromboplastin Time 30.5 SECONDS (22.3-36.8)
[2021-01-29 07:36] LABS: Anion Gap 5 mmol/L (8-16); Blood Urea Nitrogen 8 mg/dL (7-17); Calcium 9.3 mg/dL (8.4-10.2); Carbon Dioxide 23 mmol/L (22-30); Chloride 108 mmol/L (98-107); Estimated CRCL calculation 100 ml/min; Estimated Glomerular Filt Rate > 60; Glucose 100 mg/dL (65-110); Potassium 3.8 mmol/L (3.4-5.0); Sodium 136 mmol/L (137-145)
[2021-01-29 08:00] VITALS: BP 130/87; PULSE 92; RESP 16; O2SAT 100
[2021-01-29 08:53] VITALS: BP 133/77; PULSE 80; RESP 16; TEMP 36.8; O2SAT 100
== END 2021-01-29 08:55 | disposition home or self-care (01) ==
PROVIDERS: Emergency Medicine; Emergency Provider Emergency Medicine; PCP Family Medicine
DX: U07.1 COVID-19 (principal); J12.82 Pneumonia due to coronavirus disease 2019; R06.02 Shortness of breath; R04.2 Hemoptysis; R00.0 Tachycardia, unspecified; R94.31 Abnormal electrocardiogram [ECG] [EKG]
CPT/HCPCS: 36415; 71275; 80048; 80076; 81025; 85025; 85610; 85730; 93005; 99284; Q9967

== ENCOUNTER 2021-07-17 11:11 | Emergency (ER) | payer BC, SELFPAY ==
--- NOTE | ~2021-07-17 | CT_ITS ---
EXAMINATION: CT brain wo con INDICATION: Dizziness and headache COMPARISON: None TECHNIQUE: Standard unenhanced head CT. The dose-length product (DLP) was 605.33 mGy-cm. The mA was a djusted according to patient size. Iterative reconstruction technique was employed. FINDINGS: There is no intracranial hemorrhage, acute infarction, or abnormal mass lesion. The ventric les are normal. There is no abnormal mass effect or midline shift. The fernandez-white matter differentiat ion is normal. The basal cisterns are patent. The orbits are normal. The paranasal sinuses, mastoids and calvarium are normal. IMPRESSION: 1. No acute intracranial abnormality. Reviewed, dictated and finalized at location A. B NURSE
--- NOTE | ~2021-07-17 | XR_ITS ---
EXAMINATION: XR chest 1V INDICATION: Dizziness TECHNIQUE: AP view of the chest is obtained. COMPARISON: 12/31/2020 FINDINGS: The lungs are free acute opacities. There is no pleural effusion or pneumothorax. The cardi omediastinal silhouette is normal. IMPRESSION: 1. No acute cardiopulmonary abnormality. Reviewed, dictated and finalized at location A. IC[employer] INSTRUMENTS INSPECTOR
[2021-07-17 11:15] VITALS: BP 152/92; PULSE 98; RESP 18; TEMP 36.6; O2SAT 100
--- NOTE | 2021-07-17 11:32 | ECG_ITS ---
Measurements Intervals [place] Rate: 87 P: 26 NC: 148 QRS: 7 QRSD: 94 T: -6 QT: 354 QTc: 427 Interpretive Statements SINUS RHYTHM BORDERLINE T WAVE ABNORMALITY- ANT/INF LEADS BASELINE ARTIFACT- I, II, III, AVR, AVL, AVF, V1-V6 BORDERLINE ECG Electronically Signed On 07-17-2021 16:07:45 GED TUTOR by Chuy Jacobs D.O.
--- NOTE | 2021-07-17 11:33 | ED.GENADULT ---
HPI - General Adult General Chief complaint: Headache Stated complaint: Headache Time Seen by Provider: 07/17/21 11:20 Source: RN notes reviewed History of Present Illness HPI narrative: Patient presents emergency department from home for dizziness. He states symptoms began approximately 2 weeks ago and progressively worsened she states at that time she is having intermittent headaches that are progressed to be a constant headache over the past 4 days states headache is located over the right posterior head she states that with that she had dizziness that is worse with turning her head side to side and getting a states that with that she feels slightly off balance and has some associated nausea denies any fevers or chills vision changes numbness or tingling of extremities unilateral weakness chest pain shortness of breath vomiting diarrhea or any other symptoms states she took Tylenol this morning for the symptoms Related Data Allergies Allergy/AdvReac Type Severity Reaction Status Date / Time No Known Allergies Allergy Verified 12/31/20 15:29 Review of Systems Review of Systems: Gen.: Denies fevers or chills Eyes: Denies eye pain or visual change ENT: Denies congestion Respiratory: Denies shortness of breath or cough CV: Denies chest pain or palpitations GI: Denies abdominal pain emesis or diarrhea. Reports nausea denies Musculoskeletal: Denies back pain or muscle pain Neuro: See HPI Skin: Denies rash Except as documented, all other systems reviewed and negative [facility] Past Medical History Medical History (Updated 07/17/21 @ 15:19 by Pedro Hinojosa DO) COVID-19 Family History Family History Grandparent Diabetes mellitus Congestive heart failure Other Diabetes mellitus Father Cancer Mother Cancer Social History Social History Smoking status: Never smoker Alcohol intake: current Drinks per week: 1 Substance use: never Substance use type: does not use Gender identity (if verbalized by the patient): Female Sexual Orientation (if Verbalized by the Patient): Straight or Heterosexual Spiritual care concerns: No Exam Narrative: APPEARANCE: No acute distress, nontoxic, resting in bed HEENT: Normocephalic, atraumatic, OMM, TMs clear bilaterally EYES: PERRL, EOMI NECK: Supple, nontender, full range of motion without pain, no meningismus RESPIRATORY: No respiratory distress, clear to auscultation bilaterally with no rhonchi wheezing or rales CARDIOVASCULAR: RRR s murmur ABDOMINAL: Soft, nontender, nondistended MUSCULOSKELETAL: Moves all extremities. No clubbing, cyanosis or edema. NEURO: A and O ?3, following commands, speech normal, cranial nerves II through XII grossly intact,muscle strength 5 out of 5 bilateral upper and lower extremities SKIN:: Warm, dry. Normal Color PSYCHIATRIC: Normal affect/mood Course Course Emergency Course: Patient notes minimal improvement with Antivert patient then given Valium with great improvement of dizziness states she is ready for discharge Discussed with patient results of workup and diagnosis. Discussed need for follow-up with primary care, proper use of medication, and reasons to return to the emergency department. Patient understands and agrees to current treatment plan Vital Signs Vital signs: Vital Signs Temperature 97.8 F 07/17/21 11:15 Pulse Rate 98 07/17/21 11:15 Respiratory Rate 18 07/17/21 11:15 Blood Pressure 152/92 H 07/17/21 11:15 Pulse Oximetry 100 07/17/21 11:15 Temperature 97.8 F 07/17/21 11:15 Pulse Rate 92 07/17/21 12:49 Respiratory Rate 18 07/17/21 12:01 Blood Pressure 129/82 07/17/21 12:49 Pulse Oximetry 98 07/17/21 12:01 Medical Decision Making MDM Narrative Medical decision making narrative: Patient's vertigo is felt to be likely peripheral in origin. There is no diplopia,
[2021-07-17] MEDS: KETOROLAC 30 MG/ML VIAL (*BKC) IV PUSH (11:54)
[2021-07-17] MEDS: SODIUM CHLORIDE 0.9% IV 1,000 ML 999 ML IV CONT (11:54)
[2021-07-17] MEDS: MECLIZINE HCL 25 MG TABLET PO (11:56)
[2021-07-17 12:01] VITALS: PULSE 78; RESP 18; O2SAT 98
[2021-07-17 12:14] LABS: Appearance Urine Clear (Clear); Bilirubin Urine Negative (Negative); Blood Urine Trace-lysed (Negative); Color Urine Yellow (Yellow); Glucose Urine UA Negative (Negative); Ketones Urine Negative (Negative); Leukocyte Esterase Ur Negative LEU/UL (Negative); Nitrate Urine Negative (Negative); Protein Urine Negative (Negative); Urobilinogen Urine 0.2 mg/dL (<2.0)
[2021-07-17 12:17] LABS: Basophils Percent Auto 0.3 % (0.2-1.2); Eosinophils Absolute Auto 0.2 K/mm3 (0-0.3); Eosinophils Percent Auto 1.7 % (0-4.4); Hematocrit 39.7 % (37.0-47.0); Hemoglobin 12.4 g/dL (12.0-15.0); Immature Granulocyte Absolute 0.02 K/mm3 (0.00-0.031); Immature Granulocyte Percent A 0.2 % (0-0.5); Lymphocytes Absolute Auto 2.24 K/mm3 (0.9-3.2); Lymphocytes Percent Auto 25.4 % (18.3-44.2); Mean Corpuscular HGB Conc 31.2 g/dl (32-36); Mean Corpuscular Hemoglobin 24.6 pg (26-34); Mean Corpuscular Volume 78.8 fl (80-100); Mean Platelet Volume 9.7 fl (7.4-10.4); Monocytes Absolute Auto 0.4 K/mm3 (0.1-0.6); Monocytes Percent Auto 4.6 % (2.6-8.5); Neutrophils Percent Auto 67.8 % (45.5-73.1); Platelet Count Result 351 k/mm3 (150-375); Red Blood Count 5.04 M/mm3 (4.2-5.4); Red Cell Distribution Width 17.2 % (11.5-14.5); White Blood Count 8.8 K/mm3 (4.5-10.0)
[2021-07-17 12:18] LABS: Mucus Urine Rare /lpf; RBC Urine 0-2 /hpf (0-2); Squamous Epithelial Cell Urine Occasional /hpf (Few); WBC Urine 0-3 /hpf
[2021-07-17 12:21] LABS: Add Urine Microscopic? YES
[2021-07-17 12:26] LABS: Alanine Aminotransferase 17 U/L (4-35); Albumin Level 4.2 g/dL (3.5-5.1); Alkaline Phosphatase 65 U/L (38-126); Anion Gap 9 mmol/L (8-16); Aspartate Amino Transferase 23 U/L (14-36); Bilirubin,Total 0.4 mg/dL (0.2-1.3); Blood Urea Nitrogen 10 mg/dL (7-17); Calcium 9.2 mg/dL (8.4-10.2); Carbon Dioxide 26 mmol/L (22-30); Chloride 102 mmol/L (98-107); Estimated CRCL calculation 78 ml/min; Estimated Glomerular Filt Rate > 60; Glucose 115 mg/dL (65-110); Potassium 3.9 mmol/L (3.4-5.0); Sodium 137 mmol/L (137-145)
[2021-07-17 12:32] LABS: Prothrombin Time 12.9 Seconds (11.1-14.7)
[2021-07-17 12:35] LABS: Partial Thromboplastin Time 29.3 SECONDS (22.3-36.8)
[2021-07-17 12:38] LABS: Troponin I < 0.012 ng/mL (0.000-0.034)
[2021-07-17 12:48] VITALS: BP 124/74; PULSE 84
[2021-07-17 12:49] VITALS: BP 129/82; PULSE 92
[2021-07-17] MEDS: diazePAM (*CRX) 2 MG TABLET PO (13:38)
[2021-07-17 15:27] VITALS: BP 110/76; PULSE 78; RESP 18; O2SAT 98
== END 2021-07-17 15:28 | disposition home or self-care (01) ==
PROVIDERS: Emergency Provider Emergency Medicine; PCP Nurse Practitioner
DX: R42 Dizziness and giddiness (principal); R51.9 Headache, unspecified; Z86.16 Personal history of COVID-19
CPT/HCPCS: 36415; 70450; 71045; 80053; 81001; 81025; 84484; 85025; 85610; 85730; 93005; 96361; 96374; 99284; A9270; J1885; J7030